=== PATIENT | female | born 1995 | race Hispanic/Latino ===

== ENCOUNTER 2018-05-26 13:18 | Emergency (ER) | payer SELFPAY | END 2018-05-26 15:12 | disposition home or self-care (01) | LOC: EDH 13:18 | DX: J06.9 Acute upper respiratory infection, unspecified (principal) | CPT/HCPCS: 99281 ==

== ENCOUNTER 2019-05-17 14:35 | Observation (INO) | payer MEDICAID ==
[~2019-05-17] VITALS: Ht 154.9 cm; Wt 87.1 kg
[2019-05-17 15:26] LABS: APPEARANCE,URINE Cloudy (CLEAR); BILIRUBIN,URINE Negative (NEGATIVE); COLOR,URINE Dark Yellow (YELLOW); GLUCOSE, URINE (UA) Negative (NEGATIVE); KETONES,URINE 15 mg/dL (NEGATIVE); LEUKOCYTE ESTERASE ,URINE Small (NEGATIVE); NITRATE,URINE Positive (NEGATIVE); OCCULT BLOOD,URINE Negative (NEGATIVE); PROTEIN,URINE Negative (NEGATIVE)
[2019-05-17 15:38] LABS: BACTERIA,URINE Many /HPF (None Seen); MUCUS,URINE Few LPF (None Seen); SQUAMOUS EPITHELIAL CELL,UR Moderate /HPF (0-2)
== END 2019-05-17 15:00 | disposition home or self-care (01) ==
LOC: EDH 14:35 → LDH 14:36
DX: O9A.213 Injury, poisoning and certain other consequences of external causes complicating pregnancy, third trimester (principal); O99.89 Other specified diseases and conditions complicating pregnancy, childbirth and the puerperium; M25.551 Pain in right hip; Z3A.28 28 weeks gestation of pregnancy; W18.39XA Other fall on same level, initial encounter; Y93.89 Activity, other specified; Y92.89 Other specified places as the place of occurrence of the external cause
CPT/HCPCS: 81001; G0378

== ENCOUNTER 2019-06-10 14:47 | Emergency (ER) | payer MEDICAID | END 2019-06-10 16:22 | disposition home or self-care (01) | LOC: EDH 14:47 | DX: K02.9 Dental caries, unspecified (principal) ==

== ENCOUNTER 2021-10-26 23:21 | Emergency (ER) | payer MEDICAID ==
[~2021-10-26] VITALS: Ht 154.9 cm; Wt 101.2 kg
[2021-10-27] MEDS ORDERED: CEFAZOLIN SODIUM 1 GM VIAL IM ONE (00:30)
[2021-10-27] MEDS ORDERED: ACETAMINOPHEN 500 MG TABLET PO ONE (00:30)
[2021-10-27] MEDS ORDERED: OCTYL 2-CYANOACRYLATE 1 EACH TP SCH (01:30)
[2021-10-27] MEDS ORDERED: CEPH500B PO (01:39)
[2021-10-27 02:00] VITALS: BP 139/76
== END 2021-10-27 02:02 | disposition home or self-care (01) ==
LOC: EDH 23:21
DX: S61.412A Laceration without foreign body of left hand, initial encounter (principal); W26.0XXA Contact with knife, initial encounter; Y93.89 Activity, other specified; Y92.89 Other specified places as the place of occurrence of the external cause; Y99.8 Other external cause status
CPT/HCPCS: 12001; 73130; 96372; 99283; J0690

== ENCOUNTER 2022-08-09 13:32 | Emergency (ER) | payer MEDICAID ==
[~2022-08-09] VITALS: Ht 152.4 cm; Wt 86.2 kg
[~2022-08-09 13:32] MED LIST: CEPH500B PO
[2022-08-09 14:02] LABS: BASOPHILS % (AUTO) 0.4 % (0.0-5.0); EOSINOPHILS % (AUTO) 2.3 % (0.0-8.0); HEMATOCRIT 42.6 % (36-48); LYMPHOCYTES % (AUTO) 28.1 % (21.0-51.0); NEUTROPHILS % (AUTO) 62.7 % (40.0-77.0); PLATELET COUNT (AUTO) 276 K/uL (130-400); RED BLOOD CELL COUNT(AUTO) 4.84 MIL/uL (4.00-5.50); RED CELL DISTRIBUTION WIDTH 12.4 % (11.0-15.5); WHITE BLOOD COUNT (AUTO) 7.9 K/uL (4.8-10.8)
[2022-08-09 14:10] LABS: HCG,QUALITATIVE URINE NEGATIVE (NEGATIVE)
[2022-08-09 14:11] LABS: APPEARANCE,URINE CLEAR (CLEAR); BILIRUBIN,URINE NEGATIVE (NEGATIVE); COLOR,URINE LIGHT-YELLOW (YELLOW); GLUCOSE, URINE (UA) NEGATIVE (NEGATIVE); KETONES,URINE NEGATIVE (NEGATIVE); LEUKOCYTE ESTERASE ,URINE NEGATIVE Leu/uL (NEGATIVE); NITRATE,URINE NEGATIVE (NEGATIVE); OCCULT BLOOD,URINE NEGATIVE (NEGATIVE); PROTEIN,URINE NEGATIVE (NEGATIVE); UROBILINOGEN,URINE 0.2 mg/dL (0.2-1.0)
[2022-08-09] MEDS ORDERED: ONDANSETRON 4MG INJ ONE (14:13)
[2022-08-09] MEDS ORDERED: 0.9%NACL 1000ML 1,000 ML IV ONE ×2 (14:13→14:30)
[2022-08-09] MEDS ORDERED: MORPHINE 4 MG SYG ONE (14:13)
[2022-08-09 14:17] LABS: CREATININE 0.7 mg/dL (0.5-1.5); POTASSIUM 3.5 mmol/L (3.5-5.1)
[2022-08-09 14:21] LABS: ALBUMIN 3.4 g/dL (3.5-5.0); TOTAL PROTEIN, SERUM 7.4 g/dL (6.0-8.3)
[2022-08-09] MEDS ORDERED: ONDANSETRON 4MG INJ IVP ONE (14:30)
[2022-08-09] MEDS ORDERED: MORPHINE 4 MG SYG IVP ONE (14:30)
[2022-08-09 15:20] VITALS: BP 135/86
== END 2022-08-09 15:30 | disposition home or self-care (01) ==
LOC: EDH 13:32
DX: R10.32 Left lower quadrant pain (principal)
CPT/HCPCS: 99285; 74176; 96374; 96361; 96375; 80053; 83690; 85025; 81003; 81025; 36415; J7030; J2405; J2270